=== PATIENT | female | born 1980 | race Caucasian/White ===

== ENCOUNTER 2018-01-10 17:25 | Emergency (ER) | payer SELFPAY ==
[2018-01-10 17:33] VITALS: TEMP 98.1
[2018-01-10 17:49] LABS: APPEARANCE,URINE Clear; BILIRUBIN,URINE NEGATIVE (NEGATIVE); COLOR,URINE Yellow; GLUCOSE, URINE (UA) NEGATIVE (NEGATIVE); KETONES,URINE NEGATIVE (NEGATIVE); LEUKOCYTE ESTERASE ,URINE NEGATIVE (NEGATIVE); NITRATE,URINE NEGATIVE (NEGATIVE); OCCULT BLOOD,URINE NEGATIVE (NEG-TRACE); UROBILINOGEN,URINE 0.2 (0.2-1.0 EU)
[2018-01-10] MEDS ORDERED: SODIUM CHLORIDE 0.9% 1000ML 1,000 ML IV SCH (18:00)
[2018-01-10 18:01] LABS: BACTERIA 1+ (< 1+); CRYSTALS 1+ AMORPH URATES (0-3 AVE/HPF); RBC,URINE 0-2 (0-3AV/HPF); WBC,URINE 0-2 (0-5AV/HPF)
[2018-01-10 18:21] LABS: HEMATOCRIT 41 % (35-47); HEMOGLOBIN 13.4 gm/dl (12.0-15.5); MEAN CORPUSCULAR HEMOGLOBIN 29.4 pg (27.0-32.0); MEAN CORPUSCULAR HGB CONC 32.5 gm/dl (32.0-36.0); MEAN CORPUSCULAR VOLUME 91 fL (81-99)
[2018-01-10 18:37] LABS: BILIRUBIN,TOTAL 0.1 mg/dl (0.2-1.0); CALCIUM 8.4 mg/dl (8.5-10.1); CARBON DIOXIDE 27.9 mEq/L (21-32); CREATININE 0.71 mg/dl (0.60-1.00); POTASSIUM 3.9 mMol/L (3.5-5.1); TOTAL PROTEIN 6.9 gm/dl (6.4-8.2)
[2018-01-10 18:42] LABS: LACTIC ACID 0.8 mMol/L (0.0-2.0)
[2018-01-10 18:50] LABS: BAND NEUTROPHILS % (MANUAL) 1 %; BASOPHILS % (MANUAL) 0 % (0-3); EOSINOPHILS % (MANUAL) 0 % (0-9); LYMPHOCYTES % (MANUAL) 14 % (10-50); MONOCYTES % (MANUAL) 5 % (0-12); NEUTROPHILS % (MANUAL) 80 % (37-80)
[2018-01-10 18:51] LABS: NORMAL RBCS PRESENT
[2018-01-10] MEDS ORDERED: KETOROLAC TROMETHAMINE 30 MG/ML SOL IV ONE (20:37)
[2018-01-10] MEDS ORDERED: LEVOFLOXACIN 500 MG TAB PO ONE (20:38)
[2018-01-10] MEDS ORDERED: KETOROLAC TROMETHAMINE 30 MG/ML SOL ONE (20:38)
[2018-01-10] MEDS ORDERED: LEVOFLOXACIN 500 MG TAB ONE (20:41)
[2018-01-10 20:46] VITALS: RESP 20
[2018-01-10] MEDS ORDERED: LORAZEPAM 0.5 MG TAB PO ONE (21:26)
[2018-01-10] MEDS ORDERED: LORAZEPAM 0.5 MG TAB ONE (21:29)
[2018-01-10] MEDS ORDERED: ONDANSETRON HCL 4 MG/2 ML SOL IV ONE (21:51)
[2018-01-10] MEDS ORDERED: HYDROMORPHONE HCL 2 MG/ML SOL IV ONE (21:51)
[2018-01-10] MEDS ORDERED: HYDROMORPHONE 1 MG/ML SYRINGE ONE (21:57)
[2018-01-10] MEDS ORDERED: ONDANSETRON HCL 4 MG/2 ML SOL ONE (21:57)
[2018-01-10 23:58] VITALS: BP 152/80; PULSE 60; O2SAT 94
== END 2018-01-10 22:41 | DRG 694 ==
LOC: ED 17:25
DX: N20.0 Calculus of kidney (principal); F41.9 Anxiety disorder, unspecified; R30.0 Dysuria; N83.201 Unspecified ovarian cyst, right side
CPT/HCPCS: 36415; 74176; 80053; 81001; 84703; 85007; 85027; 87040; 96365; 96374; 96375; 99284; 99285; J1885; J2405; A9270-GY; J1170